=== PATIENT | male | born 1950 | race Caucasian/White ===

== ENCOUNTER 2017-05-12 01:14 | Emergency (ER) | payer MEDICARE, MEDICAID ==
[~2017-05-12] VITALS: Ht 177.8 cm; Wt 110.9 kg
[~2017-05-12 01:14] MED LIST: ALLO100T PO; ASPI-1265 PO; IND25C PO; PRED20TA PO; ZOF4T PO
[2017-05-12 02:14] LABS: BASOPHILS % (AUTO) 0.3 % (0-1); EOSINOPHILS # (AUTO) 0.1 X10'3 (0-0.9); EOSINOPHILS % (AUTO) 1.2 % (0-6); HEMATOCRIT 39.8 % (42.0-52.0); HEMOGLOBIN 13.5 g/dl (14.0-17.9); LYMPHOCYTES # (AUTO) 3.5 X10'3 (1.1-4.8); LYMPHOCYTES % (AUTO) 53.9 % (21-51); MEAN CORPUSCULAR HGB CONC 33.9 % (33.0-36.5); MEAN CORPUSCULAR VOLUME 88.4 FL (78-98); MEAN PLATELET VOLUME 9.7 FL (7.4-10.4); MONOCYTES # (AUTO) 0.4 X10'3 (0-0.9); MONOCYTES % (AUTO) 6.3 % (2-12); NEUTROPHILS # (AUTO) 2.5 X10'3 (1.8-7.7); NEUTROPHILS % (AUTO) 38.3 % (42-75); PLATELET COUNT 128 X10'3 (140-440); RED CELL DISTRIBUTION WIDTH 13.4 % (11.5-14.5); WHITE BLOOD COUNT 6.5 X10'3 (4.5-11.0)
[2017-05-12 02:22] LABS: PARTIAL THROMBOPLASTIN TIME 26 SECONDS (22-32); PROTHROMBIN TIME 10.3 SECONDS (9.0-12.0)
[2017-05-12 02:24] LABS: ALANINE AMINOTRANSFERASE 32 U/L (12-78); ALBUMIN 3.6 G/DL (3.4-5.0); ALBUMIN/GLOBULIN RATIO 0.8 (1.1-1.5); ALKALINE PHOSPHATASE 59 IU/L (46-116); ANION GAP 7 (8-16); ASPARTATE AMINO TRANSFERASE 13 U/L (10-37); BILIRUBIN,TOTAL 0.4 MG/DL (0.1-1.0); BLOOD UREA NITROGEN 18 MG/DL (7-18); BUN/CREATININE RATIO 17.6 (5.4-32.0); CHLORIDE 106 MMOL/L (99-107); CREATININE 1.02 MG/DL (0.60-1.10); GLUCOSE 160 MG/DL (70-104); POTASSIUM 3.7 MMOL/L (3.5-5.1); SODIUM 141 MMOL/L (135-145); TOTAL CARBON DIOXIDE 27.9 MMOL/L (24-32); TOTAL PROTEIN 7.9 G/DL (6.4-8.2); eGFR 73 ML/MIN
[2017-05-12 02:28] LABS: TROPONIN I < 0.04 NG/ML (0.0-0.05)
[2017-05-12 02:39] LABS: CLARITY,URINE Clear (Clear); COLOR,URINE Yellow (Yellow); GLUCOSE, URINE Negative (Neg); KETONES,URINE Negative (Neg); LEUKOCYTE ESTERASE ,URINE Negative (Neg); NITRITES, URINE Negative (Neg); OCCULT BLOOD,URINE Negative (Neg); PH,URINE 6.5 (4.8-8.0); PROTEIN,URINE Negative (Neg)
[2017-05-12 02:42] LABS: UA COLLECTION TYPE CLN CATCH MIDSTREAM
[2017-05-12] MEDS ORDERED: PRED20TA PO (05:20)
[2017-05-12] MEDS ORDERED: AZIT-63 PO (05:20)
[2017-05-12 05:56] VITALS: BP 140/76
== END 2017-05-12 06:02 | disposition home or self-care (01) ==
LOC: ER 01:15
DX: J40 Bronchitis, not specified as acute or chronic (principal); I10 Essential (primary) hypertension; Z87.891 Personal history of nicotine dependence; Z79.82 Long term (current) use of aspirin; Z79.899 Other long term (current) drug therapy
CPT/HCPCS: 36415; 71045; 80053; 81003; 83605; 83735; 84145; 84484; 85025; 85610; 85730; 87040; 87502; 87503; 93005; 99285

== ENCOUNTER 2017-09-27 15:50 | Emergency (ER) | payer MEDICARE, MEDICAID ==
[~2017-09-27] VITALS: Ht 180.3 cm; Wt 106.0 kg
[2017-09-27 16:06] VITALS: BP 125/59
[2017-09-27] MEDS ORDERED: EPIN0.3P8 IM (16:08)
== END 2017-09-27 16:27 | disposition home or self-care (01) ==
LOC: ER 15:50
DX: T63.441A Toxic effect of venom of bees, accidental (unintentional), initial encounter (principal); I10 Essential (primary) hypertension; Z79.899 Other long term (current) drug therapy; Y92.89 Other specified places as the place of occurrence of the external cause
CPT/HCPCS: 99283

== ENCOUNTER 2018-03-01 14:04 | Emergency (ER) | payer MEDICARE, MEDICAID ==
[~2018-03-01] VITALS: Ht 177.8 cm; Wt 95.5 kg
[~2018-03-01 14:04] MED LIST changes: +EPIN0.3P8 IM
[2018-03-01] MEDS ORDERED: TETanus/Pertussis (Acell)/Diphther VAC/PF (Tdap-Adult) 0.5ml syringe IM ONE (14:15)
[2018-03-01] MEDS ORDERED: normal saline 1000ML IV soln IVB ONE (14:15)
[2018-03-01 14:19] VITALS: BP 133/76
[2018-03-01] MEDS ORDERED: EPIN0.3P17 IM (14:42)
[2018-03-01] MEDS ORDERED: famotidine/PF 10 mg/ml inj IV ONE (15:30)
== END 2018-03-01 16:04 | disposition home or self-care (01) ==
LOC: ER 14:04
DX: T63.441A Toxic effect of venom of bees, accidental (unintentional), initial encounter (principal); T78.2XXA Anaphylactic shock, unspecified, initial encounter; I10 Essential (primary) hypertension; Z98.890 Other specified postprocedural states; Z91.030 Bee allergy status; Z79.82 Long term (current) use of aspirin; Z79.899 Other long term (current) drug therapy; X58.XXXA Exposure to other specified factors, initial encounter
CPT/HCPCS: 90471; 90715; 96374; 99284; J3490

== ENCOUNTER 2019-01-25 20:18 | Inpatient (IN) | payer MEDICARE, MEDICAID ==
[~2019-01-25] VITALS: Ht 180.3 cm; Wt 100.0 kg
[~2019-01-25 20:18] MED LIST changes: +EPIN0.3P17 IM
[2019-01-25 20:55] LABS: BASOPHILS % (AUTO) 0.5 % (0-1); EOSINOPHILS % (AUTO) 0.7 % (0-6); HEMATOCRIT 38.7 % (42.0-52.0); LYMPHOCYTES # (AUTO) 2.9 X10'3 (1.1-4.8); LYMPHOCYTES % (AUTO) 49.5 % (21-51); MEAN CORPUSCULAR HEMOGLOBIN 30.2 PG (27.0-31.0); MEAN CORPUSCULAR HGB CONC 33.6 g/dL (33.0-36.5); MEAN PLATELET VOLUME 9.5 FL (7.4-10.4); MONOCYTES # (AUTO) 0.4 X10'3 (0-0.9); MONOCYTES % (AUTO) 6.9 % (2-12); NEUTROPHILS # (AUTO) 2.5 X10'3 (1.8-7.7); NEUTROPHILS % (AUTO) 42.4 % (42-75); PLATELET COUNT 131 X10'3 (140-440); RED CELL DISTRIBUTION WIDTH 14.8 % (11.5-14.5); WHITE BLOOD COUNT 5.9 X10'3 (4.5-11.0)
[2019-01-25] MEDS ORDERED: temazepam 15mg capsule PO PRN (21:00)
[2019-01-25 21:13] LABS: ALANINE AMINOTRANSFERASE 42 U/L (12-78); ALBUMIN 3.6 G/DL (3.4-5.0); ALBUMIN/GLOBULIN RATIO 0.9 (1.1-1.5); ALKALINE PHOSPHATASE 51 IU/L (46-116); ANION GAP 9 (8-16); ASPARTATE AMINO TRANSFERASE 59 U/L (10-37); BILIRUBIN,TOTAL 0.5 MG/DL (0.1-1.0); BLOOD UREA NITROGEN 21 MG/DL (7-18); BUN/CREATININE RATIO 21.2 (5.4-32.0); CALCIUM 8.6 MG/DL (8.5-10.1); CHLORIDE 105 MMOL/L (99-107); CREATININE 0.99 MG/DL (0.60-1.10); LIPASE 227 U/L (73-393); SODIUM 142 MMOL/L (135-145); TOTAL CARBON DIOXIDE 27.6 MMOL/L (24-32); TOTAL PROTEIN 7.8 G/DL (6.4-8.2); eGFR 75 ML/MIN
[2019-01-25 21:16] LABS: GLUCOSE 98 MG/DL (70-104)
[2019-01-25 22:03] LABS: CLARITY,URINE CLEAR (Clear); COLOR,URINE YELLOW (Yellow); GLUCOSE, URINE NEGATIVE (Neg); KETONES,URINE NEGATIVE (Neg); LEUKOCYTE ESTERASE ,URINE NEGATIVE (Neg); NITRITES, URINE NEGATIVE (Neg); OCCULT BLOOD,URINE NEGATIVE (Neg); PH,URINE 6.5 (4.8-8.0); PROTEIN,URINE NEGATIVE (Neg); UROBILINOGEN,URINE 0.2 E.U/dL (0.2-1.0)
[2019-01-25 22:04] LABS: UA COLLECTION TYPE NON-SPECIFIED
--- NOTE | 2019-01-25 22:39 | NUR ---
PT UP OUT OF BED TO VOID . CHANGED INTO GOWN . MED REC COMPLETED
--- NOTE | 2019-01-25 22:50 | NUR ---
BELONGINGS LIST: GLASSES, CELL PHONE, BOOTS, SOCKS, JEANS, BLACK SHIRT, BELT, WALLET, X2 BANDANAS
[2019-01-25] MEDS ORDERED: acetaminophen 325mg tablet PO PRN ×2 (22:55)
[2019-01-25] MEDS ORDERED: ondansetron/PF 4mg/2ml inj IV PRN (22:55)
[2019-01-25] MEDS ORDERED: magnesium hydroxide 30ml (MOM) UD suspension PO PRN (22:55)
[2019-01-25] MEDS ORDERED: mag hydrox/Alum hydrox/simeth 30ml oral suspension PO PRN (22:55)
[2019-01-25] MEDS ORDERED: HYDROcodone/acetaminophen 5mg/325mg tablet PO PRN (22:55)
[2019-01-25] MEDS ORDERED: morphine 2 MG/ML inj. syringe IV PRN ×2 (22:55)
[2019-01-25] MEDS: normal saline 1000ml 1,000 ML IV SCH (23:07)
[2019-01-25] MEDS: piperacillin/tazo 4.5gm/100ml 100 ML IV SCH (23:07)
[2019-01-26 00:35] VITALS: BP 154/85
[2019-01-26 05:22] LABS: BASOPHILS % (AUTO) 0.3 % (0-1); EOSINOPHILS % (AUTO) 0.3 % (0-6); HEMATOCRIT 35.8 % (42.0-52.0); LYMPHOCYTES # (AUTO) 1.6 X10'3 (1.1-4.8); MEAN CORPUSCULAR HEMOGLOBIN 30.1 PG (27.0-31.0); MEAN CORPUSCULAR HGB CONC 33.6 g/dL (33.0-36.5); MEAN CORPUSCULAR VOLUME 89.5 FL (78-98); MEAN PLATELET VOLUME 9.3 FL (7.4-10.4); MONOCYTES # (AUTO) 0.3 X10'3 (0-0.9); MONOCYTES % (AUTO) 6.3 % (2-12); NEUTROPHILS # (AUTO) 2.5 X10'3 (1.8-7.7); NEUTROPHILS % (AUTO) 57.1 % (42-75); PLATELET COUNT 110 X10'3 (140-440); RED CELL DISTRIBUTION WIDTH 14.6 % (11.5-14.5); WHITE BLOOD COUNT 4.4 X10'3 (4.5-11.0)
[2019-01-26 05:44] LABS: ALANINE AMINOTRANSFERASE 122 U/L (12-78); ALBUMIN 3.2 G/DL (3.4-5.0); ALBUMIN/GLOBULIN RATIO 0.8 (1.1-1.5); ALKALINE PHOSPHATASE 61 IU/L (46-116); ANION GAP 7 (8-16); ASPARTATE AMINO TRANSFERASE 144 U/L (10-37); BILIRUBIN,TOTAL 0.5 MG/DL (0.1-1.0); BLOOD UREA NITROGEN 18 MG/DL (7-18); BUN/CREATININE RATIO 16.7 (5.4-32.0); CALCIUM 8.5 MG/DL (8.5-10.1); CHLORIDE 109 MMOL/L (99-107); CREATININE 1.08 MG/DL (0.60-1.10); GLUCOSE 97 MG/DL (70-104); POTASSIUM 4.2 MMOL/L (3.5-5.1); SODIUM 142 MMOL/L (135-145); TOTAL CARBON DIOXIDE 25.9 MMOL/L (24-32); eGFR 68 ML/MIN
--- NOTE | 2019-01-26 06:20 | NUR ---
Problems reprioritized. Patient report given, questions answered & plan of care reviewed with Roz GÓMEZ. Patient is awake and denies having pain.
--- NOTE | 2019-01-26 06:43 | NUR ---
Patient in room SKIP 349. I have received report from DALIA Bustillo and had the opportunity to ask questions and assume patient care.
[2019-01-26 07:38] VITALS: BP 144/75
[2019-01-26] MEDS: piperacillin/tazo 4.5gm/100ml 100 ML IV SCH ×2 (08:30→16:35)
[2019-01-26] MEDS ORDERED: metoprolol tartrate 25mg tablet PO SCH (08:35)
[2019-01-26] MEDS: normal saline 1000ml 1,000 ML IV SCH (09:33)
[2019-01-26 12:04] VITALS: BP 144/67
[2019-01-26] MEDS ORDERED: METO25TA6 PO (16:42)
--- NOTE | 2019-01-26 18:36 | NUR ---
Problems reprioritized. Patient report given, questions answered & plan of care reviewed with DALIA Parada. Addendum: 01/26/19 at 1837 by Radha Chung RN disregard note. made on wrong pt. pt discharged and escorted to [facility].
--- NOTE | 2019-01-26 18:39 | NUR ---
Pt discharged to home with all belongings, in private vehicle, accompanied by family. Discharge instructions and medications reviewed, new prescription called to [facility] on [address]. IV DC'd, cannula intact. Pt instructed to follow up with Dr Juarez in 1 week and to return to ED if symptoms return.
[2019-01-26] MEDS ORDERED: lactobacillus rhamnosus 10,000 MMU CELLS/CAPSULE PO SCH (20:00)
== END 2019-01-26 18:30 | disposition home or self-care (01) | DRG 446 ==
LOC: ER 20:18 → SUR 3N 22:52 → UNDOADMIN 01-26 00:28 → SUR 3N 01-26 00:28
PROVIDERS: ADMIT Hospitalist; ATTEND Internal Medicine
DX: K80.01 Calculus of gallbladder with acute cholecystitis with obstruction (principal); I71.4 Abdominal aortic aneurysm, without rupture; I10 Essential (primary) hypertension; M10.9 Gout, unspecified; Z91.030 Bee allergy status
CPT/HCPCS: 36415; 71046; 74176; 80053; 81003; 82948; 83605; 83690; 84484; 85025; 87081; 93005; 99285; G0378; J2543; J7030

== ENCOUNTER 2019-03-09 14:21 | Emergency (ER) | payer MEDICARE, MEDICAID ==
[~2019-03-09] VITALS: Ht 180.3 cm; Wt 96.0 kg
[~2019-03-09 14:21] MED LIST changes: -ALLO100T PO; -EPIN0.3P8 IM; -IND25C PO; +METO25TA6 PO; -PRED20TA PO; -ZOF4T PO
[2019-03-09 14:52] LABS: BASOPHILS % (AUTO) 0.4 % (0-1); EOSINOPHILS % (AUTO) 0.7 % (0-6); HEMATOCRIT 38.3 % (42.0-52.0); LYMPHOCYTES # (AUTO) 2.3 X10'3 (1.1-4.8); LYMPHOCYTES % (AUTO) 50.1 % (21-51); MEAN CORPUSCULAR HEMOGLOBIN 30.3 PG (27.0-31.0); MEAN CORPUSCULAR HGB CONC 33.9 g/dL (33.0-36.5); MEAN CORPUSCULAR VOLUME 89.3 FL (78-98); MEAN PLATELET VOLUME 9.4 FL (7.4-10.4); MONOCYTES # (AUTO) 0.2 X10'3 (0-0.9); MONOCYTES % (AUTO) 4.5 % (2-12); NEUTROPHILS % (AUTO) 44.3 % (42-75); PLATELET COUNT 135 X10'3 (140-440); RED BLOOD COUNT 4.29 X10'6 (4.70-6.10); RED CELL DISTRIBUTION WIDTH 14.6 % (11.5-14.5); WHITE BLOOD COUNT 4.6 X10'3 (4.5-11.0)
[2019-03-09 15:06] LABS: PARTIAL THROMBOPLASTIN TIME 26 SECONDS (22-32)
[2019-03-09 15:07] LABS: ALANINE AMINOTRANSFERASE 19 U/L (12-78); ALBUMIN 3.7 G/DL (3.4-5.0); ALBUMIN/GLOBULIN RATIO 0.8 (1.1-1.5); ALKALINE PHOSPHATASE 58 IU/L (46-116); ANION GAP 6 (8-16); ASPARTATE AMINO TRANSFERASE 17 U/L (10-37); BILIRUBIN,TOTAL 0.4 MG/DL (0.1-1.0); BLOOD UREA NITROGEN 21 MG/DL (7-18); BUN/CREATININE RATIO 19.8 (5.4-32.0); CALCIUM 9.1 MG/DL (8.5-10.1); CHLORIDE 105 MMOL/L (99-107); CREATININE 1.06 MG/DL (0.60-1.10); GLUCOSE 137 MG/DL (70-104); POTASSIUM 3.9 MMOL/L (3.5-5.1); SODIUM 138 MMOL/L (135-145); TOTAL CARBON DIOXIDE 27.3 MMOL/L (24-32); TOTAL PROTEIN 8.5 G/DL (6.4-8.2); eGFR 69 ML/MIN
[2019-03-09 16:51] VITALS: BP 130/92
== END 2019-03-09 16:59 | disposition home or self-care (01) ==
LOC: ER 14:22
DX: R00.2 Palpitations (principal); R06.02 Shortness of breath; R11.0 Nausea; R42 Dizziness and giddiness; I10 Essential (primary) hypertension; Z86.19 Personal history of other infectious and parasitic diseases; Z98.890 Other specified postprocedural states; Z91.030 Bee allergy status; Z79.82 Long term (current) use of aspirin; Z79.899 Other long term (current) drug therapy
CPT/HCPCS: 36415; 71045; 80053; 84484; 85025; 85610; 85730; 93005; 93306; 99284

== ENCOUNTER 2019-05-24 16:40 | Emergency (ER) | payer MEDICARE, MEDICAID ==
[~2019-05-24] VITALS: Ht 177.8 cm; Wt 94.7 kg
[2019-05-24 16:47] VITALS: BP 138/82
[2019-05-24] MEDS ORDERED: PENI500T2 PO (18:50)
[2019-05-24] MEDS ORDERED: IBUP-1985 PO (18:50)
== END 2019-05-24 19:01 | disposition home or self-care (01) ==
LOC: ER 16:41
DX: K08.89 Other specified disorders of teeth and supporting structures (principal); K02.9 Dental caries, unspecified; I10 Essential (primary) hypertension; Z86.19 Personal history of other infectious and parasitic diseases; Z79.899 Other long term (current) drug therapy; Z79.82 Long term (current) use of aspirin; Z91.030 Bee allergy status
CPT/HCPCS: 99283

== ENCOUNTER 2019-08-16 01:29 | Emergency (ER) | payer MEDICARE, MEDICAID ==
[~2019-08-16] VITALS: Ht 180.3 cm; Wt 92.0 kg
[~2019-08-16 01:29] MED LIST changes: +IBUP-1985 PO
[2019-08-16 02:03] LABS: BASOPHILS % (AUTO) 0.4 % (0-1); EOSINOPHILS % (AUTO) 0.6 % (0-6); HEMATOCRIT 37.1 % (42.0-52.0); HEMOGLOBIN 12.3 g/dl (14.0-17.9); LYMPHOCYTES # (AUTO) 3.4 X10'3 (1.1-4.8); LYMPHOCYTES % (AUTO) 54.1 % (21-51); MEAN CORPUSCULAR HEMOGLOBIN 29.8 PG (27.0-31.0); MEAN CORPUSCULAR HGB CONC 33.2 g/dL (33.0-36.5); MEAN CORPUSCULAR VOLUME 89.7 FL (78-98); MEAN PLATELET VOLUME 9.2 FL (7.4-10.4); MONOCYTES # (AUTO) 0.5 X10'3 (0-0.9); MONOCYTES % (AUTO) 7.8 % (2-12); NEUTROPHILS # (AUTO) 2.4 X10'3 (1.8-7.7); NEUTROPHILS % (AUTO) 37.1 % (42-75); PLATELET COUNT 121 X10'3 (140-440); RED BLOOD COUNT 4.13 X10'6 (4.70-6.10); RED CELL DISTRIBUTION WIDTH 14.4 % (11.5-14.5); WHITE BLOOD COUNT 6.4 X10'3 (4.5-11.0)
[2019-08-16 02:15] LABS: ALANINE AMINOTRANSFERASE 21 U/L (12-78); ALBUMIN 3.7 G/DL (3.4-5.0); ALBUMIN/GLOBULIN RATIO 0.9 (1.1-1.5); ALKALINE PHOSPHATASE 52 IU/L (46-116); ANION GAP 4 (8-16); ASPARTATE AMINO TRANSFERASE 19 U/L (10-37); BILIRUBIN,TOTAL 0.3 MG/DL (0.1-1.0); BLOOD UREA NITROGEN 23 MG/DL (7-18); BUN/CREATININE RATIO 21.1 (5.4-32.0); CALCIUM 9.1 MG/DL (8.5-10.1); CHLORIDE 105 MMOL/L (99-107); CREATININE 1.09 MG/DL (0.60-1.10); GLUCOSE 93 MG/DL (70-104); SODIUM 138 MMOL/L (135-145); TOTAL CARBON DIOXIDE 28.8 MMOL/L (24-32); TOTAL PROTEIN 7.9 G/DL (6.4-8.2); eGFR 67 ML/MIN
[2019-08-16 02:18] LABS: TROPONIN I < 0.04 NG/ML (0.0-0.05)
[2019-08-16 02:44] VITALS: BP 151/86
[2019-08-16 03:05] LABS: GIANT PLATELET FEW; PLATELET ESTIMATE DECREASED; TOTAL CELLS COUNTED 100
== END 2019-08-16 02:51 | disposition home or self-care (01) ==
LOC: ER 01:29
DX: R00.2 Palpitations (principal); I10 Essential (primary) hypertension; Z98.890 Other specified postprocedural states; Z86.19 Personal history of other infectious and parasitic diseases; Z91.030 Bee allergy status; Z79.82 Long term (current) use of aspirin; Z79.899 Other long term (current) drug therapy
CPT/HCPCS: 36415; 71045; 80053; 84484; 85025; 93005; 99285

== ENCOUNTER 2020-02-15 19:08 | Emergency (ER) | payer MEDICARE, MEDICAID ==
[~2020-02-15] VITALS: Ht 180.3 cm; Wt 94.5 kg
[2020-02-15 19:39] LABS: BASOPHILS % (AUTO) 0.5 % (0-1); EOSINOPHILS % (AUTO) 0.5 % (0-6); HEMATOCRIT 36.8 % (42.0-52.0); HEMOGLOBIN 12.2 g/dl (14.0-17.9); LYMPHOCYTES # (AUTO) 2.2 X10'3 (1.1-4.8); LYMPHOCYTES % (AUTO) 42.3 % (21-51); MEAN CORPUSCULAR HEMOGLOBIN 29.6 PG (27.0-31.0); MEAN CORPUSCULAR HGB CONC 33.3 g/dL (33.0-36.5); MEAN CORPUSCULAR VOLUME 88.9 FL (78-98); MONOCYTES # (AUTO) 0.4 X10'3 (0-0.9); MONOCYTES % (AUTO) 6.9 % (2-12); NEUTROPHILS # (AUTO) 2.5 X10'3 (1.8-7.7); NEUTROPHILS % (AUTO) 49.8 % (42-75); PLATELET COUNT 128 X10'3 (140-440); RED BLOOD COUNT 4.14 X10'6 (4.70-6.10); RED CELL DISTRIBUTION WIDTH 14.6 % (11.5-14.5); WHITE BLOOD COUNT 5.1 X10'3 (4.5-11.0)
[2020-02-15 19:56] LABS: ALANINE AMINOTRANSFERASE 25 U/L (12-78); ALBUMIN 3.7 G/DL (3.4-5.0); ALBUMIN/GLOBULIN RATIO 0.9 (1.1-1.5); ALKALINE PHOSPHATASE 48 IU/L (46-116); ANION GAP 5 (8-16); ASPARTATE AMINO TRANSFERASE 17 U/L (10-37); BILIRUBIN,TOTAL 0.4 MG/DL (0.1-1.0); BLOOD UREA NITROGEN 19 MG/DL (7-18); BUN/CREATININE RATIO 18.1 (5.4-32.0); CALCIUM 8.6 MG/DL (8.5-10.1); CHLORIDE 104 MMOL/L (99-107); CREATININE 1.05 MG/DL (0.60-1.10); GLUCOSE 103 MG/DL (70-104); POTASSIUM 3.6 MMOL/L (3.5-5.1); SODIUM 137 MMOL/L (135-145); TOTAL CARBON DIOXIDE 28.3 MMOL/L (24-32); TOTAL PROTEIN 7.8 G/DL (6.4-8.2); eGFR 70 ML/MIN
[2020-02-15 21:40] VITALS: BP 121/73
== END 2020-02-15 21:46 | disposition home or self-care (01) ==
LOC: ER 19:08
DX: R07.89 Other chest pain (principal); I10 Essential (primary) hypertension; Z86.19 Personal history of other infectious and parasitic diseases; Z88.8 Allergy status to other drugs, medicaments and biological substances; Z79.82 Long term (current) use of aspirin; Z79.899 Other long term (current) drug therapy
CPT/HCPCS: 36415; 71045; 80053; 83880; 84484; 85025; 93005; 99285

== ENCOUNTER 2021-10-10 14:01 | Emergency (ER) | payer MEDICARE, MEDICAID ==
[~2021-10-10] VITALS: Ht 180.3 cm; Wt 100.9 kg
[~2021-10-10 14:01] MED LIST changes: +LOP25T PO; -METO25TA6 PO
[2021-10-10 14:26] VITALS: BP 118/69
[2021-10-10] MEDS ORDERED: HYDR-3972 PO (16:04)
[2021-10-10] MEDS ORDERED: PRED50TA PO (16:04)
== END 2021-10-10 16:15 | disposition home or self-care (01) ==
LOC: ER 14:01
DX: M25.561 Pain in right knee (principal); M25.461 Effusion, right knee; I10 Essential (primary) hypertension; M10.9 Gout, unspecified; Z86.19 Personal history of other infectious and parasitic diseases; Z91.030 Bee allergy status; Z79.82 Long term (current) use of aspirin; Z79.899 Other long term (current) drug therapy
CPT/HCPCS: 99284

== ENCOUNTER 2023-03-17 01:18 | Inpatient (IN) | payer MEDICARE, MEDICAID ==
[~2023-03-17] VITALS: Ht 180.3 cm; Wt 95.5 kg
[~2023-03-17 01:18] MED LIST changes: +PRED50TA PO
[2023-03-17 02:06] LABS: EOSINOPHILS % (AUTO) 0.6 % (0-6); HEMATOCRIT 35.9 % (42.0-52.0); HEMOGLOBIN 11.9 g/dl (14.0-17.9); LYMPHOCYTES # (AUTO) 1.8 X10'3 (1.1-4.8); LYMPHOCYTES % (AUTO) 35.2 % (21-51); MEAN CORPUSCULAR HEMOGLOBIN 29.4 PG (27.0-31.0); MEAN CORPUSCULAR HGB CONC 33.1 g/dL (33.0-36.5); MEAN CORPUSCULAR VOLUME 88.9 FL (78-98); MEAN PLATELET VOLUME 9.2 FL (7.4-10.4); MONOCYTES # (AUTO) 0.4 X10'3 (0-0.9); MONOCYTES % (AUTO) 8.8 % (2-12); NEUTROPHILS # (AUTO) 2.8 X10'3 (1.8-7.7); NEUTROPHILS % (AUTO) 54.4 % (42-75); PLATELET COUNT 117 X10'3 (140-440); RED BLOOD COUNT 4.04 X10'6 (4.70-6.10); RED CELL DISTRIBUTION WIDTH 15.5 % (11.5-14.5); WHITE BLOOD COUNT 5.1 X10'3 (4.5-11.0)
[2023-03-17 02:21] LABS: ALANINE AMINOTRANSFERASE 24 U/L (12-78); ALBUMIN 3.5 G/DL (3.4-5.0); ALBUMIN/GLOBULIN RATIO 0.8 (1.1-1.5); ALKALINE PHOSPHATASE 57 IU/L (46-116); ANION GAP 6 (8-16); ASPARTATE AMINO TRANSFERASE 23 U/L (10-37); BILIRUBIN,TOTAL 0.5 MG/DL (0.1-1.0); BLOOD UREA NITROGEN 20 MG/DL (7-18); BUN/CREATININE RATIO 19.8 (10.0-20.0); CALCIUM 9.3 MG/DL (8.5-10.1); CHLORIDE 103 MMOL/L (99-107); CREATININE 1.01 MG/DL (0.60-1.10); GLUCOSE 111 MG/DL (70-104); SODIUM 137 MMOL/L (135-145); TOTAL CARBON DIOXIDE 27.8 MMOL/L (24-32); TOTAL PROTEIN 7.9 G/DL (6.4-8.2); eCRCL 69 ML/MIN; eGFR 72 ML/MIN
[2023-03-17] MEDS ORDERED: nitroGLYCERIN 1gm ointment UD TP ONE (02:30)
[2023-03-17] MEDS ORDERED: aspirin 325mg tablet, delayed-release (Ecotrin) PO ONE ×2 (02:30→09:25)
[2023-03-17 02:32] LABS: POTASSIUM 3.9 MMOL/L (3.5-5.1)
[2023-03-17] MEDS ORDERED: acetaminophen 325mg tablet PO PRN ×2 (03:10)
[2023-03-17] MEDS ORDERED: potassium Cl 20 mEq SR tablet PO PRN ×2 (03:10)
[2023-03-17] MEDS ORDERED: potassium Cl 40MEQ/1/2NS 520ml 520 ML IV PRN (03:10)
[2023-03-17] MEDS ORDERED: HYDROcodone/acetaminophen 10/325mg tab PO PRN (03:10)
[2023-03-17] MEDS ORDERED: magnesium Cl slow-release 64mg tablet PO PRN (03:10)
[2023-03-17] MEDS ORDERED: morphine 2 MG/ML inj. syringe IV PRN ×2 (03:10)
[2023-03-17] MEDS ORDERED: HYDROcodone/acetaminophen 5mg/325mg tablet PO PRN (03:10)
[2023-03-17] MEDS ORDERED: ondansetron/PF 4mg/2ml inj IV PRN (03:10)
[2023-03-17] MEDS ORDERED: magnesium 4gm in 100ml NS 100 ML IV PRN (03:10)
[2023-03-17] MEDS ORDERED: magnesium 2GM in 50ml NS 50 ML IV PRN (03:10)
[2023-03-17] MEDS ORDERED: iohexol 350MG/ML 100ml bottle IV ONE (03:14)
[2023-03-17] MEDS: normal saline 1000ml 1,000 ML IV SCH ×2 (07:41→17:56)
[2023-03-17] MEDS ORDERED: heparin, porcine 5000 units/ml vial SQ SCH (08:00)
[2023-03-17] MEDS ORDERED: clopidogrel 300mg tablet PO ONE (09:25)
[2023-03-17] MEDS ORDERED: atorvastatin 20mg tablet PO ONE (09:25)
[2023-03-17] MEDS ORDERED: heparin 10,000 units/1 ML INJ IV ONE (11:30)
[2023-03-17] MEDS ORDERED: heparin 10,000 units/1 ML INJ IV PRN (11:30)
[2023-03-17 12:20] LABS: APTT 28 SECONDS (22-32)
[2023-03-17] MEDS: heparin 25,000 UNIT/250ml bag 250 ML IV PRN (12:39)
[2023-03-17 12:52] LABS: CHOL/HDL RATIO 3.2 (0.00-4.99); CHOLESTEROL 191 MG/DL (0-200); HDL CHOLESTEROL 59 MG/DL (35-60); LDL CHOLESTEROL 103 MG/DL (50-100); TRIGLYCERIDES 108 MG/DL (20-135)
[2023-03-17] MEDS: metoprolol succinate 25mg (24-HOUR) SR. Tablet PO SCH (15:35)
[2023-03-17] MEDS ORDERED: ASPI-1071 PO (16:48)
[2023-03-17] MEDS ORDERED: EPIN0.3P3 IM (16:48)
[2023-03-17] MEDS: atorvastatin 20mg tablet PO SCH (17:10)
[2023-03-17 19:35] VITALS: BP 117/69; PULSE 65; RESP 18; TEMP 98.4; O2SAT 95
[2023-03-17 20:00] VITALS: RESP 18; O2SAT 97
[2023-03-17] MEDS ORDERED: temazepam 15mg capsule PO PRN (21:00)
[2023-03-17 22:00] VITALS: BP 133/70; PULSE 59; RESP 13; TEMP 97.6; O2SAT 96
[2023-03-18] VITALS (22 sets, daily range): BP systolic 112–164; BP diastolic 62–102; PULSE 53–136; RESP 11–24; TEMP 97–98.6; O2SAT 94–99
[2023-03-18 03:00] LABS: BASOPHILS % (AUTO) 0.4 % (0-1); EOSINOPHILS % (AUTO) 0.8 % (0-6); HEMATOCRIT 35.5 % (42.0-52.0); HEMOGLOBIN 11.8 g/dl (14.0-17.9); LYMPHOCYTES # (AUTO) 2.5 X10'3 (1.1-4.8); LYMPHOCYTES % (AUTO) 50.7 % (21-51); MEAN CORPUSCULAR HEMOGLOBIN 29.6 PG (27.0-31.0); MEAN CORPUSCULAR HGB CONC 33.3 g/dL (33.0-36.5); MEAN PLATELET VOLUME 8.5 FL (7.4-10.4); MONOCYTES # (AUTO) 0.3 X10'3 (0-0.9); NEUTROPHILS # (AUTO) 2.1 X10'3 (1.8-7.7); NEUTROPHILS % (AUTO) 41.1 % (42-75); PLATELET COUNT 119 X10'3 (140-440); RED BLOOD COUNT 3.99 X10'6 (4.70-6.10); RED CELL DISTRIBUTION WIDTH 15.7 % (11.5-14.5)
[2023-03-18 03:13] LABS: ALANINE AMINOTRANSFERASE 20 U/L (12-78); ALBUMIN 3.2 G/DL (3.4-5.0); ALBUMIN/GLOBULIN RATIO 0.8 (1.1-1.5); ALKALINE PHOSPHATASE 57 IU/L (46-116); ANION GAP 9 (8-16); ASPARTATE AMINO TRANSFERASE 21 U/L (10-37); BILIRUBIN,TOTAL 0.5 MG/DL (0.1-1.0); BLOOD UREA NITROGEN 21 MG/DL (7-18); BUN/CREATININE RATIO 22.8 (10.0-20.0); CALCIUM 8.8 MG/DL (8.5-10.1); CHLORIDE 104 MMOL/L (99-107); CREATININE 0.92 MG/DL (0.60-1.10); GLUCOSE 101 MG/DL (70-104); SODIUM 137 MMOL/L (135-145); TOTAL CARBON DIOXIDE 24.5 MMOL/L (24-32); TOTAL PROTEIN 7.2 G/DL (6.4-8.2); eCRCL 76 ML/MIN; eGFR 81 ML/MIN
[2023-03-18] MEDS: normal saline 1000ml 1,000 ML IV SCH ×2 (07:46→22:04)
[2023-03-18] MEDS ORDERED: regadenoson 0.4mg/5ml syringe IV ONE (09:45)
[2023-03-18] MEDS: aspirin 81mg, enteric-coated 1 TAB TABLET.DR PO SCH (11:06)
[2023-03-18] MEDS: clopidogrel 75mg tablet PO SCH (11:06)
[2023-03-18] MEDS: atorvastatin 20mg tablet PO SCH (11:08)
[2023-03-18] MEDS: metoprolol succinate 25mg (24-HOUR) SR. Tablet PO SCH (11:08)
[2023-03-18] MEDS: heparin 25,000 UNIT/250ml bag 250 ML IV PRN (13:00)
[2023-03-18] MEDS ORDERED: verapamil 2.5 mg/ml inj IV ONE (17:00)
[2023-03-18] MEDS ORDERED: LIDOcaine 1% (10mg/ml) 2ml vial ONE (17:00)
[2023-03-18] MEDS ORDERED: iohexol 350 MG/ML 50ML vial IV ONE (17:01)
[2023-03-18] MEDS ORDERED: iohexol 350MG/ML 100ml bottle IV ONE ×2 (17:01→17:57)
[2023-03-18] MEDS ORDERED: fentaNYL/PF 50MCG/1 ML 2ML syringe ONE (17:01)
[2023-03-18] MEDS ORDERED: midazolam 1 mg/ML 2ml injection ONE (17:01)
[2023-03-18] MEDS ORDERED: heparin 1,000unit/ml 10ml vial 10 ML ONE (17:01)
[2023-03-18] MEDS ORDERED: nitroGLYCERIN 500mcg/5mL D5W 5 ML IV ONE ×2 (17:03→18:51)
[2023-03-18] MEDS ORDERED: clopidogrel 300mg tablet ONE ×2 (18:59→19:05)
[2023-03-18] MEDS ORDERED: atorvastatin 20mg tablet PO SCH (19:43)
[2023-03-19 02:00] VITALS: BP 118/68; PULSE 57; RESP 13; TEMP 98.1; O2SAT 97
[2023-03-19] MEDS: aspirin 81mg, enteric-coated 1 TAB TABLET.DR PO SCH (07:48)
[2023-03-19 07:49] VITALS: BP_SYST 142; PULSE 66
[2023-03-19] MEDS: clopidogrel 75mg tablet PO SCH (07:50)
[2023-03-19 08:00] VITALS: RESP 12; O2SAT 98
[2023-03-19] MEDS ORDERED: metoprolol tartrate 25mg tablet PO SCH (08:00)
[2023-03-19 08:09] LABS: BASOPHILS % (AUTO) 0.2 % (0-1); EOSINOPHILS % (AUTO) 0.5 % (0-6); HEMATOCRIT 33.5 % (42.0-52.0); HEMOGLOBIN 11.1 g/dl (14.0-17.9); LYMPHOCYTES # (AUTO) 1.9 X10'3 (1.1-4.8); LYMPHOCYTES % (AUTO) 37.9 % (21-51); MEAN CORPUSCULAR HEMOGLOBIN 29.4 PG (27.0-31.0); MEAN CORPUSCULAR HGB CONC 33.1 g/dL (33.0-36.5); MEAN PLATELET VOLUME 8.6 FL (7.4-10.4); MONOCYTES # (AUTO) 0.4 X10'3 (0-0.9); MONOCYTES % (AUTO) 7.4 % (2-12); NEUTROPHILS # (AUTO) 2.7 X10'3 (1.8-7.7); PLATELET COUNT 111 X10'3 (140-440); RED BLOOD COUNT 3.76 X10'6 (4.70-6.10); RED CELL DISTRIBUTION WIDTH 15.7 % (11.5-14.5); WHITE BLOOD COUNT 5.1 X10'3 (4.5-11.0)
[2023-03-19 08:32] LABS: ALANINE AMINOTRANSFERASE 15 U/L (12-78); ALBUMIN 2.9 G/DL (3.4-5.0); ALBUMIN/GLOBULIN RATIO 0.9 (1.1-1.5); ALKALINE PHOSPHATASE 48 IU/L (46-116); ANION GAP 6 (8-16); ASPARTATE AMINO TRANSFERASE 16 U/L (10-37); BILIRUBIN,TOTAL 0.5 MG/DL (0.1-1.0); BLOOD UREA NITROGEN 18 MG/DL (7-18); BUN/CREATININE RATIO 17.5 (10.0-20.0); CALCIUM 8.7 MG/DL (8.5-10.1); CHLORIDE 106 MMOL/L (99-107); CHOL/HDL RATIO 2.4 (0.00-4.99); CHOLESTEROL 141 MG/DL (0-200); CREATININE 1.03 MG/DL (0.60-1.10); GLUCOSE 97 MG/DL (70-104); HDL CHOLESTEROL 59 MG/DL (35-60); LDL CHOLESTEROL 67 MG/DL (50-100); POTASSIUM 4.1 MMOL/L (3.5-5.1); SODIUM 138 MMOL/L (135-145); TOTAL CARBON DIOXIDE 26.5 MMOL/L (24-32); TOTAL PROTEIN 6.3 G/DL (6.4-8.2); TRIGLYCERIDES 92 MG/DL (20-135); eCRCL 68 ML/MIN; eGFR 71 ML/MIN
[2023-03-19] MEDS ORDERED: LOP25T PO (11:28)
[2023-03-19] MEDS ORDERED: ASPI-1071 PO (11:28)
[2023-03-19] MEDS ORDERED: CLOP75TA34 PO (11:28)
[2023-03-19] MEDS ORDERED: ATOR20TA66 PO (11:28)
[2023-03-19] MEDS: normal saline 1000ml 1,000 ML IV SCH (12:22)
== END 2023-03-19 13:26 | disposition home or self-care (01) | DRG 321 ==
LOC: ER 01:19 → ED HOLD 03:13 → OBSVTOIN 11:27 → PCU 3S 19:07
PROVIDERS: ADMIT Internal Medicine; ATTEND Family Medicine
PROC: B32T1ZZ Computerized Tomography (CT Scan) of Left Pulmonary Artery using Low Osmolar Contrast (ICD-10-PCS; 2023-03-17)
PROC: B3201ZZ Computerized Tomography (CT Scan) of Thoracic Aorta using Low Osmolar Contrast (ICD-10-PCS; 2023-03-17)
PROC: B32S1ZZ Computerized Tomography (CT Scan) of Right Pulmonary Artery using Low Osmolar Contrast (ICD-10-PCS; 2023-03-17)
PROC: 027034Z Dilation of Coronary Artery, One Artery with Drug-eluting Intraluminal Device, Percutaneous Approach (ICD-10-PCS; principal; 2023-03-18)
PROC: 4A023N7 Measurement of Cardiac Sampling and Pressure, Left Heart, Percutaneous Approach (ICD-10-PCS; 2023-03-18)
PROC: B2111ZZ Fluoroscopy of Multiple Coronary Arteries using Low Osmolar Contrast (ICD-10-PCS; 2023-03-18)
PROC: B2151ZZ Fluoroscopy of Left Heart using Low Osmolar Contrast (ICD-10-PCS; 2023-03-18)
PROC: 4A02XM4 Measurement of Cardiac Total Activity, External Approach (ICD-10-PCS; 2023-03-18)
PROC: 3E033HZ Introduction of Radioactive Substance into Peripheral Vein, Percutaneous Approach (ICD-10-PCS; 2023-03-18)
DX: I21.4 Non-ST elevation (NSTEMI) myocardial infarction (principal); N17.0 Acute kidney failure with tubular necrosis; I10 Essential (primary) hypertension; M10.9 Gout, unspecified; T46.5X6A Underdosing of other antihypertensive drugs, initial encounter; E78.5 Hyperlipidemia, unspecified; I08.3 Combined rheumatic disorders of mitral, aortic and tricuspid valves; Z86.19 Personal history of other infectious and parasitic diseases; I25.119 Atherosclerotic heart disease of native coronary artery with unspecified angina pectoris; Z79.82 Long term (current) use of aspirin; Z79.52 Long term (current) use of systemic steroids; Z91.030 Bee allergy status; Z91.018 Allergy to other foods; Z82.49 Family history of ischemic heart disease and other diseases of the circulatory system; Y92.89 Other specified places as the place of occurrence of the external cause; Z87.891 Personal history of nicotine dependence
CPT/HCPCS: 93306; 93458; 99285; C9600; 36415; 71045; 71275; 74174; 76937; 78452; 80053; 80061; 83880; 84484; 85025; 85347; 85610; 85730; 87081; 93017; 97161; 97530; 99152; 99153; A6258; A9500; C1725; C1751; C1769; C1874; C1894; G0378; J1644; J2250; J2785; J3010; J3490; J7030; Q9967